=== PATIENT | female | born 1980 | race Caucasian/White ===

== ENCOUNTER 2024-10-28 14:48 | Emergency (ER) | payer SELFPAY ==
[2024-10-28 14:50] VITALS: BP 147/110; PULSE 88; RESP 16; TEMP 36.4; O2SAT 100
[2024-10-28 15:11] LABS: Add Urine Microscopic? YES; Appearance Urine Clear (Clear); Bilirubin Urine 1+ (Negative); Blood Urine 3+ (Negative); Color Urine Red (Yellow); Glucose Urine UA Negative (Negative); Ketones Urine Negative (Negative); Leukocyte Esterase Ur 1+ LEU/UL (Negative); Nitrate Urine Negative (Negative); Protein Urine 1+ (Negative); Specific Grav Ur >= 1.030 (1.010-1.020); pH Urine 5.5 (5.0-8.0)
--- NOTE | 2024-10-28 15:12 | PC.NURSE ---
PT REPORTS SHE WOULD LIKE TO LEAVE, STATES IT'S GONNA HURT TOO BAD TO LAY DOWN FOR A CT SCAN. ADVISED PT, ERP WILL BE IN TO ASSESS HER. SHE IS WILLING TO BE EVALUATED. WILL CONTINUE TO MONITOR.
[2024-10-28 15:17] LABS: Pregnancy On Board Control POS; Urine Pregnancy Test Negative
--- NOTE | 2024-10-28 15:26 | ED.GENADULT ---
HPI - General Adult General Chief complaint: Urogenital-Female Stated complaint: kidney stone History of Present Illness HPI narrative: Bianca is a 44F with a PMH of thryroid storm and ureterolithiasis with sepsis reported to the ED with right flank pain. Originally she thought she had pulled a muscle as she was moving, but then pain radiated to her groin and back and she had blood in her urine. She was scarred as she has gone sepsis with a stone 11 years ago. She did admit that she had taken a Percocet at home that she had from a dental procedure before she came in. Related Data Allergies Allergy/AdvReac Type Severity Reaction Status Date / Time NSAIDS (Non-Steroidal Allergy Severe Anaphylaxis Verified 10/28/24 14:56 Anti-Inflamma Penicillins Allergy Intermediate RASH Verified 10/28/24 14:56 Review of Systems Review of Systems: All systems reviewed & are unremarkable except as noted in HPI and below Exam Const: General: cooperative, well developed, alert, awake and Physically active Orientation/consciousness: oriented to person, oriented to place and oriented to time Other: Was lying in bed, curled up in a ball. HENMT: Head: normal to inspection, normocephalic and atraumatic Ears: hearing grossly normal bilaterally and external ears normal Face/Nose/Sinus: Normal external nose present Eyes: General: appearance normal, both eyes and all related structures Periorbital: periorbital findings normal Sclera: sclerae normal Pupils: Equal, round and reactive pupils present Neck: Neck: normal visual inspection Chest: Chest palpation & inspection: normal inspection of the chest Resp: Effort & Inspection: normal respiratory effort, able to speak in complete sentences and no respiratory distress Auscultation: clear to auscultation bilaterally Cardio: Jugular venous distension: no JVD Rate: regular rate Rhythm: regular rhythm GI: Inspection: normal to inspection GI Palp: Yes Soft to palpation Auscultation: normal bowel sounds : Other: Right flank pain. Skin: General skin exam: normal color and no rashes or lesions noted Neuro: General: oriented to person, oriented to place and oriented to time Cranial nerves: Yes Equal, round and reactive pupils present Extrem: General: normal to inspection Course Course Emergency Course: Ordered morphine for pain, CT, labs and UA. After administration of the morphine she became itchy all over so benadryl was given. EXAMINATION: CT abdomen pelvis wo con DATE: 10/28/2024 16:21 INDICATION: Right flank pain radiating to the right lower quadrant TECHNIQUE: Computed tomography (CT) of the abdomen and pelvis was performed without intravenous contrast. Automated exposure control and iterative reconstruction technique were employed. The dose-length product was 467.94 mGy-cm. COMPARISON: None FINDINGS: Lung bases are clear. Heart size is normal. No pericardial or pleural effusion. Diffuse hepatic steatosis. Cholecystectomy clips at the gallbladder fossa. Spleen, pancreas and bilateral adrenal glands are normal. Kidneys and ureters are normal with no urolithiasis, hydroureteronephrosis or perinephric/ureteral stranding. Bladder, uterus and bilateral adnexa are unremarkable. Suture line at the tip the cecum consistent with prior appendectomy. Bowels are otherwise unremarkable. No free intraperitoneal gas or fluid. No pathologically enlarged abdominal or pelvic lymphadenopathy. Mild thoracolumbar dextrocurvature with moderate spondylosis at the mid thoracic and lower lumbar spine. IMPRESSION: 1. No urolithiasis or acute intra-abdominal/pelvic process. 2. Status post cholecystectomy and appendectomy. 3. Diffuse hepatic steatosis. CBC and CMP were largely unremarkable. UA showed some blood and WBC but only 1+ leukocyte esterase and no leukocytes. Lipase WNL Vital Signs Vital signs: Vital Signs Oxygen Delivery Room Air 10/28/24 14:48 Temperature 98.0 F 10/28/24 18:15 Pulse Rate 70 10/28/24 18:15 Respiratory Rate 18 10/28/24 18:15 Blood Pressure 118/70 10/28/24 18:15 Pulse Oximetry 98 10/28/24 18:15 Oxygen Delivery Room Air 10/28/24 18:15 Medical Decision Making Vital Signs Vital Signs: Vital Signs Oxygen Delivery Room Air 10/28/24 14:48 Temperature 98.0 F 10/28/24 18:15 Pulse Rate 70 10/28/24 18:15 Respiratory Rate 18 10/28/24 18:15 Blood Pressure 118/70 10/28/24 18:15 Pulse Oximetry 98 10/28/24 18:15 Oxygen Delivery Room Air 10/28/24 18:15 Lab Data 10/28/24 16:13 10/28/24 16:14 Labs: Lab Results 10/28/24 10/28/24 10/28/24 Range/Units 14:54 14:56 16:13 WBC 6.1 (4.8-10.8) K/mm3 RBC 4.10 L (4.20-5.40) M/mm3 Hgb 12.1 (12.0-15.0) g/dL Hct 37.0 (35.0-49.0) % MCV 90.2 (78.0-102.0) fL MCH 29.5 (27.0-31.0) pg MCHC 32.7 (32-36) g/dL RDW 14.6 H (11.6-14.4) % Plt Count 289 (150-420) K/mm3 MPV 10.7 (9.2-11.8) fl Immature Gran % (Auto) 0.3 H (0.0-0.0) % Neut % (Auto) 49.8 L (50.0-70.0) % Lymph % (Auto) 37.7 (18.0-42.0) % [place] % (Auto) 9.2 (2.0-11.0) % Eos % (Auto) 2.5 (1.0-6.0) % Baso % (Auto) 0.5 (0.0-1.0) % Lymph # (Auto) 2.29 (1.10-4.50) K/mm3 [place] # (Auto) 0.56 (0.10-0.90) K/mm3 Eos # (Auto) 0.15 (0.02-0.50) K/mm3 Baso # (Auto) 0.03 (0.00-0.10) K/mm3 Abs Immat Gran (auto) 0.02 H (0.00-0.00) K/mm3 Absolute Neuts (auto) 3.03 (1.70-7.20) K/mm3 Absolute Nucleated RBC 0.00 (0.00-0.00) K/mm3 Nucleated RBC % 0.0 (0-0.0) % Sodium (136-145) mmol/L Potassium (3.5-5.1) mmol/L Chloride (98-108) mmol/L Carbon Dioxide (21-32) mmol/L Anion Gap (4-12) mmol/L BUN (7-18) mg/dL Creatinine (0.55-1.02) mg/dL Estim Creat Clear Calc ml/min Estimated GFR (59 - ) Glucose (70-99) mg/dL Calculated Osmolality (285-295) mOsm/kg Calcium (8.5-10.1) mg/dL Total Bilirubin (0.00-1.00) mg/dL AST (15-37) U/L ALT (14-59) U/L Alkaline Phosphatase (46-116) U/L Total Protein (6.4-8.2) g/dL Albumin (3.4-5.0) g/dL Lipase 40 (16-77) U/L Urine Color Red A (Yellow) Urine Appearance Clear (Clear) Urine pH 5.5 (5.0-8.0) Ur Specific Drifting >= 1.030 H (1.010-1.020) Urine Protein 1+ H (Negative) Urine Glucose (UA) Negative (Negative) Urine Ketones Negative (Negative) Ur Blood (Man) 3+ H (Negative) Urine Nitrate Negative (Negative) Urine Bilirubin 1+ H (Negative) Urine Urobilinogen 1.0 (0.2-1.0) mg/dL Leukocyte Esterase Rfl 1+ H (Negative) GEETHA/UL Urine RBC 51-75 H (0-2) /hpf Urine WBC 51-75 H (0-3) /hpf Ur Squamous Epith Cells Many H (Few) /hpf Urine Bacteria 1+ (None) /hpf Urine Test Negative 10/28/24 Range/Units 16:14 WBC (4.8-10.8) K/mm3 RBC (4.20-5.40) M/mm3 Hgb (12.0-15.0) g/dL Hct (35.0-49.0) % MCV (78.0-102.0) fL MCH (27.0-31.0) pg MCHC (32-36) g/dL RDW (11.6-14.4) % Plt Count (150-420) K/mm3 MPV (9.2-11.8) fl Immature Gran % (Auto) (0.0-0.0) % Neut % (Auto) (50.0-70.0) % Lymph % (Auto) (18.0-42.0) % [place] % (Auto) (2.0-11.0) % Eos % (Auto) (1.0-6.0) % Baso % (Auto) (0.0-1.0) % Lymph # (Auto) (1.10-4.50) K/mm3 [place] # (Auto) (0.10-0.90) K/mm3 Eos # (Auto) (0.02-0.50) K/mm3 Baso # (Auto) (0.00-0.10) K/mm3 Abs Immat Gran (auto) (0.00-0.00) K/mm3 Absolute Neuts (auto) (1.70-7.20) K/mm3 Absolute Nucleated RBC (0.00-0.00) K/mm3 Nucleated RBC % (0-0.0) % Sodium 139 (136-145) mmol/L Potassium 4.1 (3.5-5.1) mmol/L Chloride 104 (98-108) mmol/L Carbon Dioxide 24 (21-32) mmol/L Anion Gap 11 (4-12) mmol/L BUN 16 (7-18) mg/dL Creatinine 0.88 (0.55-1.02) mg/dL Estim Creat Clear Calc 88 ml/min Estimated GFR > 60 (59 - ) Glucose 93 (70-99) mg/dL Calculated Osmolality 289 (285-295) mOsm/kg Calcium 9.6 (8.5-10.1) mg/dL Total Bilirubin 0.5 (0.00-1.00) mg/dL AST 13 L (15-37) U/L ALT 14 (14-59) U/L Alkaline Phosphatase 103 (46-116) U/L Total Protein 8.3 H (6.4-8.2) g/dL Albumin 3.9 (3.4-5.0) g/dL Lipase (16-77) U/L Urine Color (Yellow) Urine Appearance (Clear) Urine pH (5.0-8.0) Ur Specific Drifting (1.010-1.020) Urine Protein (Negative) Urine Glucose (UA) (Negative) Urine Ketones (Negative) Ur Blood (Man) (Negative) Urine Nitrate (Negative) Urine Bilirubin (Negative) Urine Urobilinogen (0.2-1.0) mg/dL Leukocyte Esterase Rfl (Negative) GEETHA/UL Urine RBC (0-2) /hpf Urine WBC (0-3) /hpf Ur Squamous Epith Cells (Few) /hpf Urine Bacteria (None) /hpf Urine Test Discharge Plan Discharge Clinical Impression: Abdominal pain, UTI (urinary tract infection) Patient Disposition: Home, Self-Care Condition: Stable Patient Language: Upper Sorbian Prescriptions: New dicyclomine 20 mg tablet 20 mg PO TID Qty: 30 0RF sulfamethoxazole-trimethoprim [Bactrim] 400-80 mg tablet 1 tablet PO HS Qty: 10 0RF Follow-up/Referrals: UNKNOWN,DOCTOR [Primary Care Provider] -
[2024-10-28 15:30] LABS: Bacteria Urine 1+ /hpf; RBC Urine 51-75 /hpf (0-2); Squamous Epithelial Cell Urine Many /hpf (Few); WBC Urine 51-75 /hpf (0-3)
[2024-10-28] MEDS: MORPHINE SULFATE (*CRX) 4 MG/ML INJ IV PUSH (15:52)
[2024-10-28] MEDS: SODIUM CHLORIDE 0.9% IV 1,000 ML 999 ML IV CONT (16:02)
[2024-10-28] MEDS: diphenhydrAMINE HCl INJ 50 MG/ML VIAL IV PUSH (16:03)
[2024-10-28 16:18] LABS: Basophils Absolute Auto 0.03 K/mm3 (0.00-0.10); Basophils Percent Auto 0.5 % (0.0-1.0); Eosinophils Absolute Auto 0.15 K/mm3 (0.02-0.50); Eosinophils Percent Auto 2.5 % (1.0-6.0); Hemoglobin 12.1 g/dL (12.0-15.0); Immature Granulocyte Absolute 0.02 K/mm3 (0.00-0.00); Immature Granulocyte Percent A 0.3 % (0.0-0.0); Lymphocytes Absolute Auto 2.29 K/mm3 (1.10-4.50); Lymphocytes Percent Auto 37.7 % (18.0-42.0); Mean Corpuscular HGB Conc 32.7 g/dL (32-36); Mean Corpuscular Hemoglobin 29.5 pg (27.0-31.0); Mean Corpuscular Volume 90.2 fL (78.0-102.0); Mean Platelet Volume 10.7 fl (9.2-11.8); Monocytes Absolute Auto 0.56 K/mm3 (0.10-0.90); Monocytes Percent Auto 9.2 % (2.0-11.0); Neutrophils Absolute Auto 3.03 K/mm3 (1.70-7.20); Neutrophils Percent Auto 49.8 % (50.0-70.0); Platelet Count Result 289 K/mm3 (150-420); Red Cell Distribution Width 14.6 % (11.6-14.4); White Blood Count 6.1 K/mm3 (4.8-10.8)
--- NOTE | 2024-10-28 16:24 | PC.NURSE ---
MORPHINE WAS ADMINISTERED DILUTED IN 10ML OF NS WITH A SLOW PUSH. PT IMMEDIATELY BEGINS TO ITCH AFTER ADMINISTRATION. NO COMPLAINTS DURING ADMINISTRATION. DENIES ANY DIFFICULTY BREATHING, NO SWELLING TO LIPS, TONGUE, FACE, MOUTH. HIVES WERE LATER NOTED TO RT FOREARM. ERP WAS NOTIFIED IMMEDIATELY AND MEDICATIONS WERE ADMINISTERED WITHOUT DIFFICULTY ORDERED. PT REPORTS HER PAIN HAS GREATLY IMPROVED. WILL CONTINUE TO MONITOR.
[2024-10-28 16:42] LABS: Alanine Aminotransferase 14 U/L (14-59); Albumin Level 3.9 g/dL (3.4-5.0); Alkaline Phosphatase 103 U/L (46-116); Anion Gap 11 mmol/L (4-12); Aspartate Amino Transferase 13 U/L (15-37); Bilirubin,Total 0.5 mg/dL (0.00-1.00); Blood Urea Nitrogen 16 mg/dL (7-18); Calcium 9.6 mg/dL (8.5-10.1); Carbon Dioxide 24 mmol/L (21-32); Chloride 104 mmol/L (98-108); Estimated CRCL calculation 88 ml/min; Estimated Glomerular Filt Rate > 60; Glucose 93 mg/dL (70-99); Osmolality Calculated 289 mOsm/kg (285-295); Potassium 4.1 mmol/L (3.5-5.1); Sodium 139 mmol/L (136-145); Total Protein 8.3 g/dL (6.4-8.2)
[2024-10-28 16:56] LABS: Lipase 40 U/L (16-77)
--- NOTE | 2024-10-28 17:12 | PC.NURSE ---
pt reports she is ready to be discharged home, does not want to wait on ivf completion. pt is awaiting arrival of for transport prior to dc. advised pt to allow ivf to infuse until arrival of . pt agrees to this. will continue to monitor.
--- NOTE | 2024-10-28 17:37 | PC.NURSE ---
PT UP TO RR WITHOUT DIFFICULTY, IVF CONTINUE TO INFUSE. PT CONTINUES TO AWAIT TRANSPORT HOME. WILL CONTINUE TO MONITOR.
[2024-10-28 18:15] VITALS: BP 118/70; PULSE 70; RESP 18; TEMP 36.7; O2SAT 98
== END 2024-10-28 18:15 | disposition home or self-care (01) ==
PROVIDERS: Emergency Medicine; Emergency Provider Family Medicine
DX: N39.0 Urinary tract infection, site not specified (principal); R10.9 Unspecified abdominal pain
CPT/HCPCS: 36415; 74176; 80053; 81001; 81025; 83690; 85025; 96361; 96374; 96375; 99284; J1200; J2270; J7030